=== PATIENT | male | born 1975 | race Caucasian/White ===

== ENCOUNTER → 2017-06-19 | Outpatient (CLI) | payer MEDICAID ==
[2017-06-19 08:43] LABS: Basophils # (A) 0.1 k/uL (0-0.2); Basophils % (A) 1 %; CH 30.4; CHCM 33.1; Eosinophils # (A) 0.2 k/uL (0-0.7); Eosinophils % (A) 2 %; HCT 50.1 % (39.0-53.0); HDW 2.78; HGB 16.2 gm/dL (13.0-17.5); Luc % (Auto) 2; Lymphocytes # (A) 2.2 k/uL (1.0-4.8); Lymphocytes % (A) 25 %; MCH 29.8 pg (25.0-35.0); MCHC 32.3 g/dL (31.0-37.0); MCV 92.2 fL (80.0-100.0); Mean Platelet Volume 8.7; Monocytes # (A) 0.7 k/uL (0-1.0); Monocytes % (A) 8 %; Neutrophils # (A) 5.5 k/uL (1.3-7.7); Neutrophils % (A) 63 %; RBC 5.43 m/uL (4.30-5.90); RDW 13.5 % (11.5-15.5); WBC 8.8 k/uL (3.8-10.6); WBC (Perox) 8.96
[2017-06-19 08:44] LABS: Appearance,Urine Clear (Clear); Bilirubin,Urine Negative (Negative); Glucose,Urine (UA) Negative (Negative); Ketones,Urine Negative (Negative); Leukocyte Esterase,Urine Negative (Negative); Nitrite,Urine Negative (Negative); PH, Urine 5.5 (5.0-8.0); Protein,Urine Negative (Negative); Specific Gravity,Urine 1.017 (1.001-1.035); UA Billing (MACRO vs. MICRO) CHEM; Urobilinogen,Urine <2.0 mg/dL (<2.0)
[2017-06-19 09:12] LABS: ALT 48 U/L (21-72); AST 23 U/L (17-59); Alkaline Phosphatase 49 U/L (38-126); Anion Gap 9 mmol/L; Blood Urea Nitrogen 12 mg/dL (9-20); Calcium 9.3 mg/dL (8.4-10.2); Carbon Dioxide 27 mmol/L (22-30); Chloride 106 mmol/L (98-107); Cholesterol 180 mg/dL (<200); Creatine Kinase 61 U/L (55-170); Glucose 93 mg/dL (74-99); HDL Cholesterol 32 mg/dL (40-60); Non-African American GFR(MDRD) >60 (>60 ml/min/1.73 sqM); Potassium 4.7 mmol/L (3.5-5.1); Sodium 142 mmol/L (137-145); Total Bilirubin 0.5 mg/dL (0.2-1.3); Total Protein 6.7 g/dL (6.3-8.2); Uric Acid 7.2 mg/dL (3.5-8.5)
[2017-06-19 09:42] LABS: Prostate Specific Antigen 0.76 ng/mL (0.00-4.00)
== END ==
LOC: LABWHC1 08:03
PROVIDERS: ATTEND Internal Medicine
DX: I10 Essential (primary) hypertension (principal); E55.9 Vitamin D deficiency, unspecified; E78.00 Pure hypercholesterolemia, unspecified; N40.0 Benign prostatic hyperplasia without lower urinary tract symptoms
CPT/HCPCS: 36415; 80053; 80061; 81003; 82306; 82550; 83036; 84153; 84439; 84443; 84550; 85025

== ENCOUNTER → 2018-01-28 | Outpatient (CLI) | payer MEDICAID ==
[2018-01-28 08:32] LABS: Basophils # (A) 0.1 k/uL (0-0.2); Basophils % (A) 1 %; Eosinophils # (A) 0.2 k/uL (0-0.7); Eosinophils % (A) 3 %; HCT 44.5 % (39.0-53.0); HGB 15.1 gm/dL (13.0-17.5); Lymphocytes # (A) 1.6 k/uL (1.0-4.8); Lymphocytes % (A) 26 %; MCV 88.3 fL (80.0-100.0); Mean Platelet Volume 9.2; Monocytes # (A) 0.5 k/uL (0-1.0); Monocytes % (A) 8 %; Neutrophils # (A) 3.9 k/uL (1.3-7.7); Neutrophils % (A) 60 %; Platelet Count 144 k/uL (150-450); RBC 5.04 m/uL (4.30-5.90); RDW 13.8 % (11.5-15.5); WBC 6.4 k/uL (3.8-10.6)
[2018-01-28 08:39] LABS: Appearance,Urine Clear (Clear); Bilirubin,Urine Negative (Negative); Blood,Urine Negative (Negative); Color,Urine Yellow; Glucose,Urine (UA) Negative (Negative); Ketones,Urine Negative (Negative); Leukocyte Esterase,Urine Negative (Negative); Nitrite,Urine Negative (Negative); PH, Urine 5.5 (5.0-8.0); Protein,Urine Trace (Negative); Specific Gravity,Urine 1.029 (1.001-1.035)
[2018-01-28 08:50] LABS: ALT 30 U/L (21-72); AST 22 U/L (17-59); Albumin 3.5 g/dL (3.5-5.0); Alkaline Phosphatase 44 U/L (38-126); Amylase 54 U/L (30-110); Anion Gap 9 mmol/L; Blood Urea Nitrogen 15 mg/dL (9-20); Calcium 8.8 mg/dL (8.4-10.2); Carbon Dioxide 27 mmol/L (22-30); Chloride 106 mmol/L (98-107); Glucose 94 mg/dL (74-99); LDH 368 U/L (313-618); Lipase 188 U/L (23-300); Potassium 4.3 mmol/L (3.5-5.1); Sodium 142 mmol/L (137-145); Total Bilirubin 0.4 mg/dL (0.2-1.3)
[2018-01-29 01:42] LABS: Hemoglobin A1C 4.8 % (4.0-6.0)
== END | disposition home or self-care (01) ==
LOC: LABWHC1 07:43
PROVIDERS: ATTEND Internal Medicine
DX: R10.84 Generalized abdominal pain (principal); I10 Essential (primary) hypertension
CPT/HCPCS: 36415; 80053; 81003; 82150; 83036; 83615; 83690; 84443; 85025

== ENCOUNTER → 2018-02-02 | Outpatient (CLI) | payer MEDICAID ==
--- NOTE | 2018-02-03 07:42 | CT ---
EXAMINATION TYPE: CT abdomen pelvis w con DATE OF EXAM: 02/02/2018 COMPARISON: CT abdomen and pelvis February 22, 2016 HISTORY: Left side abdominal pain radiating into back CT DLP: 1633 mGycm, Automated Exposure Control for Dose Reduction was Utilized. CONTRAST: CT scan of the abdomen and pelvis is performed with oral and with IV Contrast, patient injected with 100 mL of Isovue 300. FINDINGS: LUNG BASES: No significant abnormality is appreciated. LIVER/GB: No significant abnormality is appreciated. PANCREAS: No significant abnormality is seen. SPLEEN: No significant abnormality is seen. ADRENALS: No significant abnormality is seen. KIDNEYS: There is symmetric cortical medullary uptake and excretion from both kidneys without evidenc e of hydronephrosis bilaterally. No intraluminal calculus is seen in bladder. BOWEL: The oral contrast does not reach colonic level making evaluation slightly suboptimal. Normal-a ppearing appendix is seen from base of cecum. There are few diverticula in the sigmoid colon. There i s no CT evidence for acute diverticulitis PROSTATE/SEMINAL VESICLES: Slightly bulky seminal vesicles are redemonstrated bilaterally not signifi cantly changed from prior. Prostate is not enlarged. LYMPH NODES: No greater than 1cm abdominal or pelvic lymph nodes are appreciated. OSSEOUS STRUCTURES: No significant abnormality is seen. OTHER: No significant additional abnormality is seen. IMPRESSION: A few diverticula are seen in the sigmoid colon without CT evidence for acute diverticuli tis. No significant new or acute finding is seen to account for patient's clinical symptoms.
== END | disposition home or self-care (01) ==
LOC: RADCTMAIN 16:50
PROVIDERS: ATTEND Internal Medicine
DX: K57.30 Diverticulosis of large intestine without perforation or abscess without bleeding (principal)
CPT/HCPCS: 74177; Q9967

== ENCOUNTER → 2018-02-22 | Outpatient (CLI) | payer MEDICAID ==
--- NOTE | 2018-02-22 07:47 | XR ---
EXAMINATION TYPE: XR lumbar spine 2 or 3V DATE OF EXAM: 02/22/2018 COMPARISON: NONE HISTORY: 43-year-old male with low back pain and left-sided sciatica, spondylosis lumbosacral region TECHNIQUE: 3 views FINDINGS: 5 lumbar type vertebral bodies. Hypertrophic facet arthropathy lower lumbar spine. Alignment is maint ained. [id number] disc space narrowing at T11-T12 and T12-1. Minimal disc interspace narrowing at L4-L5. Vertebral body heights are preserved. IMPRESSION: 1. Hypertrophic facet arthropathy lower lumbar spine. No malalignment. 2. No vertebral compression collapse. 3. Mild degenerative disc disease T11-T12, T12-L1, and L4-L5.
== END | disposition home or self-care (01) ==
LOC: RADXRMAIN 07:27
PROVIDERS: ATTEND Internal Medicine
DX: M51.36 Other intervertebral disc degeneration, lumbar region (principal); M46.96 Unspecified inflammatory spondylopathy, lumbar region
CPT/HCPCS: 72100

== ENCOUNTER 2018-03-29 10:15 | Day surgery (SDC) | payer MEDICAID ==
[2018-03-26 10:14] VITALS: BMI 29.0
[~2018-03-29 10:15] MED LIST: LACTATED RINGERS 1,000 ML IV SCH
[2018-03-29 11:16] VITALS: TEMP 97.1
[2018-03-29] MEDS ORDERED: LIDOCAINE 1% 20 ML VIAL (10MG/ML) FOR IV START INTRADERMA ONE (11:22)
[2018-03-29] MEDS ORDERED: PROPOFOL 10 MG/ML 20 ML VIAL IV ONE (12:01)
[2018-03-29] MEDS ORDERED: LIDOCAINE 1% INJ 10MG/ML (20 ML MDV) ONE (12:01)
--- NOTE | 2018-03-29 12:36 | P.PCN ---
Date of Procedure: 03/29/18 Procedure(s) Performed: Procedure: Esophagogastroduodenoscopy and biopsy. Preoperative diagnosis: Suspected gastroesophageal reflux. Postoperative diagnosis: 1. Mild gastritis. 2. Biopsies obtained from the duodenum, antrum and esophagus. Preparation sedation: Was provided by anesthesia. Brief clinical history: The patient is a 43-year-old male who is referred for this evaluation because of nonspecific upper abdominal symptoms that he had for the last couple years. The patient had colonoscopy in 2016 because of intermittent rectal bleeding as well and he was found to have diverticulosis and low-grade internal hemorrhoids. Other workup and dietary manipulations was not revealing. This evaluation is to assess for suspected esophagitis. Procedure: With the patient on his left lateral decubitus position and after informed consent and adequate sedation, I passed the Olympus-GIF 160 video upper endoscope through the cricopharyngeus down the esophagus. GE junction was around 40-41 cm from the incisors and there was no definite hiatal hernia. The esophagus did not show any obvious esophagitis or complicated reflux disease. The endoscope was then passed into the stomach which was insufflated with air and inspected in detail including the retroflex view in the cardia. There was minimal mottling and erythema in the antrum but no ulcers or erosions. Pyloric channel, duodenal bulb, post bulbar area and descending duodenum appeared within normal limits. I obtained biopsies from the duodenum, antrum and esophagus then the endoscope was withdrawn. The patient tolerated the procedure well. Plan: The patient was reassured. Will await biopsy results. He will follow up with you as planned and I will be happy to see in the office if his symptoms persist.
[2018-03-29 12:53] VITALS: RESP 16
[2018-03-29 13:17] VITALS: BP 128/85; PULSE 58
== END 2018-03-29 13:31 | disposition home or self-care (01) ==
LOC: ORWHC2ENDO 10:15
DX: K29.70 Gastritis, unspecified, without bleeding (principal)
CPT/HCPCS: 88305; 43239; J2001; J2704

== ENCOUNTER → 2019-10-12 | Outpatient (CLI) | payer MEDICAID ==
--- NOTE | 2019-10-13 08:25 | CT ---
EXAMINATION TYPE: CT abdomen pelvis w con DATE OF EXAM: 10/12/2019 COMPARISON: 02/02/2018 INDICATION: abdominal pain X 2 weeks DLP: 1336.1 mGycm, Automated exposure control for dose reduction was used. CONTRAST: 100 mL of Isovue 300. Study performed with Oral Contrast TECHNIQUE: Axial images were obtained from above the diaphragm to the pubic rami in the axial plane a t 5 mm thick sections. Reconstructed images are reviewed on the computer in the coronal plane. FINDINGS: Limited CT sections are obtained the lung bases. The lung bases are clear. CT ABDOMEN: Liver: Normal Spleen: Normal Pancreas: Normal Adrenal glands: The adrenal glands are normal. Gallbladder: Normal Kidneys: No masses are evident. No hydronephrosis is present. No cysts are present. Delayed images were obtained through the kidneys, which remain unremarkable. Aorta: Normal Inferior vena cava: Normal. CT PELVIS: There is some fluid within the colon. Consider gastroenteritis. Colon otherwise lacks oral contrast l imiting evaluation. Small amount of contrast extends through small bowel into the cecum. There are lo ops of bowel which are incompletely distended or lack oral contrast limiting their evaluation. Appendix: Normal as visualized. Urinary bladder: Normal. Genitourinary structures: Prostate is unremarkable. Osseous structures: No suspicious lytic or sclerotic lesions. IMPRESSIONS: 1. Small amount of fluid within the colon. Consider gastroenteritis diarrhea. 2. Suspicious findings within the abdomen and pelvis are not otherwise evident.
== END | disposition home or self-care (01) ==
LOC: RADCTMAIN 15:40
PROVIDERS: ATTEND Internal Medicine
DX: K63.89 Other specified diseases of intestine (principal)
CPT/HCPCS: 74177; Q9967

== ENCOUNTER → 2020-05-08 | Outpatient (CLI) | payer MEDICAID ==
--- NOTE | 2020-05-08 12:06 | MR ---
EXAMINATION TYPE: MR lumbar spine wo con DATE OF EXAM: 05/08/2020 COMPARISON: 04/09/2020 x-ray HISTORY: Low back pain TECHNIQUE: T1 and T2 axial and sagittal images of the lumbar spine are submitted. FINDINGS: There is no abnormal signal seen within the visualized spinal cord or paraspinal soft tissu es. There is mild hypertrophic spurring anteriorly at levels L2-L4. Mild disc space narrowing at all levels. No compression deformities. At L1-2 there is no disc herniation or canal stenosis. No foraminal encroachment. At L2-3 there is no disc herniation or canal stenosis. No foraminal encroachment. Mild hypertrophic c hange of the facets. At L3-4 there is facet arthropathy with mild flattening of the thecal sac secondary to mild central d isc bulging. No Canal stenosis. No foraminal encroachment. At L4-5 there is more advanced facet arthropathy. No disc herniation. Ligamentum flavum hypertrophy. Neural foramina remain patent. No Canal stenosis. At L5-S1 there is cannot exclude a pars defect. There is slight anterolisthesis of L5 relative to S1. Neural foramina remain patent. No Canal stenosis. Incidental note is made of disc bulging at T11-T12 possible extension along the lower margin of the T 11 vertebral segment recommend thoracic spine MRI. IMPRESSION: 1. Multilevel mild degenerative disc disease and multilevel facet arthropathy. No focal herniation or canal stenosis within the lumbar spine. The sagittal images demonstrate a T11-T12 possible disc prot rusion for which thoracic spine MRI is recommended as discussed above. This level was not included in the axial images [id number]. 2. Findings are suspicious for a pars defect at L5 with minimal anterolisthesis. This could be confir med with CT scan as clinically warranted. Previous CT scan of the abdomen and pelvis does demonstrate findings suspicious for sclerosis involving both pars interarticularis with a probable defect on the left.
== END | disposition home or self-care (01) ==
LOC: RADMRIMAIN 11:08
PROVIDERS: ATTEND Orthopaedic Surgery
DX: M51.36 Other intervertebral disc degeneration, lumbar region (principal); M47.812 Spondylosis without myelopathy or radiculopathy, cervical region
CPT/HCPCS: 72148

== ENCOUNTER → 2020-05-30 | Outpatient (CLI) | payer MEDICAID ==
--- NOTE | 2020-05-30 20:02 | CT ---
EXAMINATION TYPE: CT lumbar spine wo con DATE OF EXAM: 05/30/2020 COMPARISON: Radiographs 04/09/2020 HISTORY: 45-year-old male lower back pain TECHNIQUE: Contiguous axial scanning of the lumbar spine without IV contrast. Coronal and sagittal re constructions performed. CT DLP: 1005 mGycm Automated exposure control for dose reduction was used. FINDINGS: Vertebral body heights are preserved. Mild multilevel degenerative disc disease with disc bulging throughout. Mild degenerative disc space narrowing upper lumbar spine. There is a component of mild congenital spinal canal stenosis with AP canal dimension of 1.1 cm in th e mid lumbar spine. There is facet arthropathy lower lumbar spine. 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 Trace grade 1 anterolisthesis at L5-S1. Remaining alignment is maintained. No large focal disc herniation or significant spinal canal stenosis. On the left, changes result in mild narrowing of the L5-S1 neural foramen and minimal inferior forami nal narrowing at L3-L4 and L4-L5. On the right, changes result in mild to moderate neuroforaminal narrowing at L5-S1 and mild at L3-L4 and L4-L5. No prevertebral or paravertebral soft tissue abnormality. IMPRESSION: 1. FACET ARTHROPATHY LOWER LUMBAR SPINE ALONG WITH A LEFT L5 PARS INTERARTICULARIS DEFECT. THERE IS A TRACE GRADE 1 ANTEROLISTHESIS NOTED HERE AT L5-S1. 2. MILD DEGENERATIVE DISC DISEASE THROUGHOUT. 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 NO SIGNIFICANT SPINAL CANAL STENOSIS. 3. VARIABLE MILD NEUROFORAMINAL STENOSES OUTLINED ABOVE, MORE MILD TO MODERATE ON THE RIGHT AT L5- S1.
== END | disposition home or self-care (01) ==
LOC: RADCTMAIN 16:22
PROVIDERS: ATTEND Orthopaedic Surgery
DX: M48.061 Spinal stenosis, lumbar region without neurogenic claudication (principal); M43.16 Spondylolisthesis, lumbar region; M51.36 Other intervertebral disc degeneration, lumbar region; M47.816 Spondylosis without myelopathy or radiculopathy, lumbar region
CPT/HCPCS: 72131

== ENCOUNTER → 2020-11-22 | Outpatient (CLI) | payer MEDICAID ==
--- NOTE | 2020-11-22 13:13 | US ---
EXAMINATION TYPE: US kidneys/renal and bladder DATE OF EXAM: 11/22/2020 COMPARISON: CT CLINICAL HISTORY: R79.9 Abnormal finding of blood chemistry. Pt states recent abnormal renal labs EXAM MEASUREMENTS: Right Kidney: 11.3 x 5.8 x 5.0 cm Left Kidney: 11.4 x 5.9 x 6.2 cm Right Kidney: Lobulated, no evidence of hydro Left Kidney: Lobulated, no evidence of hydro Bladder: wnl Bilateral Jets seen: Yes IMPRESSION: 1. Normal renal ultrasound
== END | disposition home or self-care (01) ==
LOC: RADUSWWP 07:07
PROVIDERS: ATTEND Internal Medicine
DX: R79.9 Abnormal finding of blood chemistry, unspecified (principal)
CPT/HCPCS: 76770

== ENCOUNTER → 2023-02-23 | Outpatient (CLI) | payer BC ==
--- NOTE | 2023-02-23 20:34 | CT ---
EXAMINATION TYPE: CT abdomen pelvis w con CT DLP: 1418.5 mGycm, Automated exposure control for dose reduction was used. DATE OF EXAM: 02/23/2023 7:09 PM COMPARISON: CT abdomen pelvis most recent from CLINICAL INDICATION:Male, 48 years old with history of R10.32 LEFT LOWER QUADRANT PAIN; LLQ abdominal pain and back pain. TECHNIQUE: Axial CT of the abdomen and pelvis. Sagittal and coronal reformats were created on a [employer] workstation. Contrast used:100 ml mL of Isovue 370 with IV Contrast, (none if empty) Oral contrast used: with Oral Contrast (none if empty) FINDINGS: LOWER CHEST: Unremarkable ABDOMEN LIVER: Diffusely hypoattenuating parenchyma. GALLBLADDER AND BILE DUCTS: Unremarkable. PANCREAS: Unremarkable. SPLEEN: Unremarkable. ADRENAL GLANDS: Unremarkable. KIDNEYS AND URETERS: No evidence of hydronephrosis or renal calculus. The ureters are unremarkable. PELVIS BLADDER: Unremarkable REPRODUCTIVE: Unremarkable. ABDOMEN & PELVIS STOMACH AND BOWEL: No evidence of bowel obstruction. Few scattered colonic diverticula. PERITONEUM/RETROPERITONEUM: No evidence of pneumoperitoneum or free fluid. VASCULATURE: No evidence of aortic aneurysm. MUSCULOSKELETAL: No acute osseous abnormalities LYMPH NODES: No gross evidence for lymphadenopathy. SOFT TISSUE/ABDOMINAL WALL: Fat-containing umbilical hernia. IMPRESSION: 1. No evidence for acute intra-abdominal process. 2. Colonic diverticulosis. 3. Fat-containing umbilical hernia. 4. Hepatic steatosis. 5. Normal appendix. 6. No obstructive uropathy or renal calculi
== END | disposition home or self-care (01) ==
LOC: RADCTMAIN 17:10
PROVIDERS: ATTEND Internal Medicine
DX: K76.0 Fatty (change of) liver, not elsewhere classified (principal); K57.30 Diverticulosis of large intestine without perforation or abscess without bleeding; K42.9 Umbilical hernia without obstruction or gangrene
CPT/HCPCS: 74177; Q9967

== ENCOUNTER → 2023-02-25 | Outpatient (CLI) | payer BC ==
--- NOTE | 2023-02-26 07:37 | XR ---
EXAMINATION TYPE: XR lumbar spine 2 or 3V DATE OF EXAM: 02/25/2023 CLINICAL HISTORY: pain TECHNIQUE: Three views of the lumbar spine are submitted. COMPARISON: None. FINDINGS: There are 5 lumbar type vertebral bodies identified. The lumbar spine shows satisfactory alignment w ithout evidence of acute fracture or dislocation. Vertebral body heights are within normal limits. Mild multilevel degenerative disc space narrowing with spondylosis greatest at L2-3 and L3-4. Mild fa cet joint arthropathy. The overlying soft tissue appears unremarkable. IMPRESSION: No acute fracture or dislocation is seen in the lumbar spine. ICD 10 NO FRACTURE, INITIAL EVALUATION
== END | disposition home or self-care (01) ==
LOC: RADXRMAIN 17:56
PROVIDERS: ATTEND Internal Medicine
DX: M47.27 Other spondylosis with radiculopathy, lumbosacral region (principal); R10.32 Left lower quadrant pain
CPT/HCPCS: 72100

== ENCOUNTER → 2024-01-15 | Outpatient (CLI) | payer BC ==
--- NOTE | 2024-01-23 18:26 | CT ---
EXAMINATION TYPE: CT abdomen pelvis w con CT DLP: 1346.60 mGycm, Automated exposure control for dose reduction was used. DATE OF EXAM: 01/15/2024 12:38 PM COMPARISON: 02/23/2023 CLINICAL INDICATION:Male, 48 years old with history of R10.9 ABDOMINAL PAIN; LLQ pain, diarrhea for s everal weeks, hx diverticulosis TECHNIQUE: Axial CT abdomen pelvis w con;Sagittal and coronal reformats were created on a separate w orkstation. Contrast used:100 mL of Isovue 300 with IV Contrast, (none if empty) Oral contrast used: with Oral Contrast (none if empty) FINDINGS: LOWER CHEST: Unremarkable ABDOMEN LIVER: Unremarkable GALLBLADDER AND BILE DUCTS: Unremarkable. PANCREAS: Unremarkable. SPLEEN: Unremarkable. ADRENAL GLANDS: Unremarkable. KIDNEYS AND URETERS: No evidence of hydronephrosis or renal calculus. The ureters are unremarkable. PELVIS BLADDER: Unremarkable REPRODUCTIVE: Unremarkable. ABDOMEN & PELVIS STOMACH AND BOWEL: No evidence of bowel obstruction. The appendix is normal. Scattered colonic divert icula. PERITONEUM/RETROPERITONEUM: No evidence of pneumoperitoneum or free fluid. VASCULATURE: No evidence of aortic aneurysm. MUSCULOSKELETAL: No acute osseous abnormalities LYMPH NODES: No gross evidence for fat-containing umbilical hernia. IMPRESSION: 1. No evidence for diverticulitis or obstructive uropathy. 2. Colonic diverticulosis. 3. Fat-containing umbilical hernia.
== END | disposition home or self-care (01) ==
LOC: RADCTMAIN 10:17
PROVIDERS: ATTEND Internal Medicine
DX: K57.30 Diverticulosis of large intestine without perforation or abscess without bleeding (principal); K42.9 Umbilical hernia without obstruction or gangrene
CPT/HCPCS: 74177; Q9967

== ENCOUNTER → 2024-06-17 | Day surgery (SDC) | payer BC ==
[2024-06-16 08:43] VITALS: BMI 30.4
[~2024-06-17] MED LIST changes: -LACTATED RINGERS 1,000 ML IV SCH; +LIDOCAINE 1% INJ 10MG/ML (20 ML MDV) ONE; +PROPOFOL 10 MG/ML 20 ML VIAL IV ONE
[2024-06-17 14:37] VITALS: TEMP 97
[2024-06-17] MEDS: IV FLUID CONTINUATION 1,000 ML IV ONE (14:40)
[2024-06-17] MEDS: LACTATED RINGERS 1,000 ML IV SCH (14:40)
--- NOTE | 2024-06-17 15:49 | P.PCN ---
Date of Procedure: 06/17/24 Procedure(s) Performed: BRIEF HISTORY: Patient is a 49-year-old pleasant white male scheduled for an elective colonoscopy as a part of screening for colon cancer. PROCEDURE PERFORMED: Colonoscopy snare polypectomy and replacement and biopsy. PREOPERATIVE DIAGNOSIS: Screening for colon cancer. IV sedation per Anesthesia. PROCEDURE: After informed consent was obtained, the patient, was brought into the endoscopy unit. IV sedation was administered by Anesthesia under continuous monitoring. Digital rectal examination was normal. Initially the Olympus CF-160 flexible video colonoscope was then inserted in the rectum, gradually advanced into the cecum without any difficulty. Careful examination was performed as the scope was gradually being withdrawn. Ileocecal valve and the appendiceal orifice were visualized and appeared normal. Prep was excellent. Mucosa of the cecum appeared normal. Descending colon there was a 3 mm polyp that was removed by cold biopsy. Rest of the, ascending colon, transverse colon, descending colon, sigmoid colon, appeared normal. Distal rectum there was a 2 cm broad-based polyp removed by piecemeal snare polypectomy and complete polypectomy accomplished. Endo Clip was placed following polypectomy. Retroflexion was performed in the rectum and no lesions were seen. The patient tolerated the procedure well. IMPRESSION: 3 millimeter ascending colon polyp status post cold biopsy 2 cm broad-based distal rectal polyp status post snare polypectomy followed by Endo Clip placement and complete polypectomy accomplished RECOMMENDATIONS: Findings of this examination were discussed with the patient as well as his family. He was advised to follow-up with the biopsy results. If the biopsy reveals adenoma he can have repeat colonoscopy in 3 years..
[2024-06-17 15:53] VITALS: RESP 16
[2024-06-17 16:16] VITALS: BP 114/83; PULSE 71
== END ==
LOC: ORWHC2ENDO 14:07
PROVIDERS: ATTEND Internal Medicine Gastroenterology
DX: Z12.11 Encounter for screening for malignant neoplasm of colon (principal); K63.5 Polyp of colon; D12.8 Benign neoplasm of rectum; I10 Essential (primary) hypertension; E78.5 Hyperlipidemia, unspecified; I42.2 Other hypertrophic cardiomyopathy; Z79.899 Other long term (current) drug therapy
CPT/HCPCS: 88305; 45380; 45385; J2003; J2704

== ENCOUNTER → 2025-02-14 | Outpatient (CLI) | payer BC ==
--- NOTE | 2025-02-14 09:54 | CT ---
EXAMINATION TYPE: CT abdomen pelvis w con CT DLP: 1503.2 mGycm, Automated exposure control for dose reduction was used. DATE OF EXAM: 02/14/2025 9:03 AM COMPARISON: CT abdomen pelvis 01/15/2024, 02/23/2023 CLINICAL INDICATION:Male, 50 years old with history of K57.32 DVTRCLI OF LG INT W/O PERFORATION OR AB SCES; DIVERTICULITIS TECHNIQUE: Standard CT of the abdomen and pelvis following the administration of 100 cc of Isovue 3 00 IV contrast material and oral contrast. Coronal and sagittal reformats were performed. FINDINGS: LOWER CHEST: No significant findings. ABDOMEN LIVER: Unremarkable GALLBLADDER AND BILE DUCTS: Unremarkable. PANCREAS: Unremarkable. SPLEEN: Unremarkable. ADRENAL GLANDS: Unremarkable. KIDNEYS AND URETERS: No evidence of hydronephrosis or renal calculus. The kidneys enhance symmetrical ly. Contrast is demonstrated within both collecting systems and proximal ureters on the delayed phase . PELVIS BLADDER: Unremarkable REPRODUCTIVE: Unremarkable. ABDOMEN & PELVIS STOMACH AND BOWEL: Stomach and duodenum are unremarkable. Enteric contrast reaches the sigmoid colon. Scattered distal colonic diverticulosis without evidence for acute diverticulitis. No focal bowel wa ll thickening or surrounding inflammatory changes. The appendix is within normal limits. No evidence of bowel obstruction. PERITONEUM: No evidence of pneumoperitoneum or free fluid. VASCULATURE: No evidence of aortic aneurysm. MUSCULOSKELETAL: No acute osseous abnormalities LYMPH NODES: No evidence for lymphadenopathy. SOFT TISSUE/ABDOMINAL WALL: Tiny fat filled umbilical hernia. IMPRESSION: 1. No CT evidence for acute abdominal/pelvic process. 2. Colonic diverticulosis without evidence for acute diverticulitis. [facility], , 02/14/2025 9:52 AM
== END | disposition home or self-care (01) ==
LOC: RADCTMAIN 07:07
PROVIDERS: ATTEND Surgery
DX: K57.32 Diverticulitis of large intestine without perforation or abscess without bleeding (principal)
CPT/HCPCS: 74177; Q9967